=== PATIENT | female | born 1970 | race American Indian/Alaskan Native ===

== ENCOUNTER 2016-09-02 10:20 | Outpatient (CLI) | payer MEDICAID ==
[2016-09-02 10:45] LABS: Hemoglobin 11.6 gm/dl (10.1-14.3); Mean Corpuscular HGB Conc 31 % (30-34); Mean Corpuscular Hemoglobin 26 pg (28-32); Mean Corpuscular Volume 83 fl (79-97); Platelet Count 272 K/mm3 (140-440); Red Blood Count 4.46 M/mm3 (3.65-5.03); Red Cell Distribution Width 15.8 % (13.2-15.2); White Blood Count 11.9 K/mm3 (4.5-11.0)
[2016-09-02 11:08] LABS: Alanine Aminotransferase 29 units/L (7-56); Alkaline Phosphatase 90 units/L (35-129); Anion Gap 18 mmol/L; BUN/Creatinine Ratio 11.42; Bilirubin,Total 0.4 mg/dL (0.1-1.2); Blood Urea Nitrogen 8 mg/dL (7-17); Calcium 9.3 mg/dL (8.4-10.2); Carbon Dioxide 25 mmol/L (22-30); Chloride 93.2 mmol/L (98-107); Cholesterol 115 mg/dL (50-199); Glucose 272 mg/dL (65-100); HDL Cholesterol 50 mg/dL (40-59); LDL Cholesterol,Direct 49 mg/dL (50-130); Potassium 4.2 mmol/L (3.6-5.0); Sodium 132 mmol/L (137-145); Total Protein 8.2 g/dL (6.3-8.2); Triglycerides 84 mg/dL (2-149)
[2016-09-06 17:31] LABS: Vitamin D, 25-OH, Total 33 ng/mL (30-100)
== END 2016-09-02 10:21 | disposition home or self-care (01) ==
LOC: LAB 10:20
PROVIDERS: ATTEND Specialist
DX: E11.65 Type 2 diabetes mellitus with hyperglycemia (principal)
CPT/HCPCS: 36415; 80053; 80061; 82043; 82306; 83036; 85027

== ENCOUNTER 2017-09-26 11:39 | Emergency (ER) | payer MEDICAID ==
[2017-09-26 19:51] VITALS: BP 159/92
[2017-09-26] MEDS ORDERED: MOTRIN PO ONE (20:38)
[2017-09-26] MEDS ORDERED: BENADRYL PO ONE (20:38)
--- NOTE | 2017-09-26 20:43 | Emergency Department Report ---
ED Rash HPI - HPI Chief Complaint: Skin Rash Stated Complaint: INSECT BITE Time Seen by Provider: 09/26/17 20:37 Duration: 1 Day Location: Head (forehead), Upper Extremities (right) Suspected Cause: Insect Rash Symptoms: Yes Itching, Yes Blistering, No Facial Swelling, No Tongue/Oral Swelling, No Breathing Difficulties, No Choking Sensation, No Wheezing/Dyspnea, No Peeling, No Fever, No Lightheaded, No Malaise, No Myalgias Severity: severe Other History: 47-year-old -[place] female with a past medical history of diabetes hypertension hypercholesterolemia comes in for possible insect bite to the forehead yesterday. Patient reports that since this rash noted on her forehead that is very pruritic raised as well as on her right upper arm. Patient did not take any medication prior to arrival. Patient denies any fever or chills or nausea no vomiting. Patient reports that she is takes clonidine 0.3 mg daily metformin 1000 mg twice a day tizandine 4 mg, Lipitor 20 mg, metoprolol 50 mg daily, D3 5000 units daily B1 250 mg daily pro-air aspirin 81 mg and digitalis exam 120 mg daily. She also reports that she takes insulin on a 500 units sliding scale. ED Review of Systems ROS: Stated complaint: INSECT BITE Other details as noted in HPI Constitutional: denies: chills, fever Eyes: denies: eye pain, eye discharge, vision change ENT: denies: ear pain, throat pain Respiratory: denies: cough, shortness of breath, wheezing Cardiovascular: denies: chest pain, palpitations Endocrine: no symptoms reported Gastrointestinal: denies: abdominal pain, nausea, diarrhea Genitourinary: denies: urgency, dysuria, discharge Musculoskeletal: denies: back pain, joint swelling, arthralgia Skin: lesions, pruritus Neurological: headache Psychiatric: denies: anxiety, depression Hematological/Lymphatic: denies: easy bleeding, easy bruising ED Past Medical Hx - Past Medical History Previous Medical History?: Yes Hx Hypertension: Yes Hx Diabetes: Yes Hx Asthma: Yes - Surgical History Past Surgical History?: Yes Additional Surgical History: - Social History Smoking Status: Never Smoker Substance Use Type: Alcohol, Prescribed - Medications Home Medications: Home Medications Medication Instructions Recorded Confirmed Last Taken Type Cyclobenzaprine [Flexeril 10 MG 10 mg PO TID PRN #30 tablet 04/04/15 Unknown Rx TAB] Ibuprofen [Motrin] 800 mg PO Q8HR #30 tablet 04/04/15 Unknown Rx traMADol [Ultram 50 MG tab] 50 mg PO Q6HR PRN #20 tablet 04/04/15 Unknown Rx Rash Exam - Exam General: Vital signs noted. No distress. Alert and acting appropriately. HEENT: No Periorbital Edema, No Conjuctival Injection, No Chemosis, No Perioral Edema, No Tongue Edema, No Uvular Edema, No Compromised Airway, No Drooling Lungs: Yes Good Air Exchange, No Wheezes, No Ronchi, No Stridor, No Cough, No Labored Respirations, No Retractions, No Use of Accessory Muscles, No Other Abnormal Lung Sounds Heart: Yes Regular, No Murmur Skin: Yes Erythema (raised lesion that has small fluid like blisters.) Other: Positive: Abdomen Normal, Neurologic Normal, Musculoskeletal Normal ED Course Vital Signs 09/26/17 09/26/17 09/26/17 11:45 17:47 19:50 Temperature 98.8 F 98.4 F 98.7 F Pulse Rate 81 77 75 Respiratory 20 18 17 Rate Blood Pressure 167/113 154/82 Blood Pressure 159/92 [Right] O2 Sat by Pulse 100 99 100 Oximetry ED Medical Decision Making - Medical Decision Making Patient has been evaluated by this provider fast track. I discussed the patient we'll give her Benadryl 50 mg and ibuprofen for pain. I discussed the patient that she should continue with Benadryl 25 mg every 4-6 hours for itching she can take [id number] Claritin 10 mg and use the Benadryl in between as needed. Discussed the patient she can also get qjio-[id number] anti -itch cream or hydrocortisone to apply 4-5 times a day. Discussed patient if rash gets worse or does not improve she needs to follow up with her primary care provider. Patient verbalized understanding. Critical care attestation.: If time is entered above; I have spent that time in minutes in the direct care of this critically ill patient, excluding procedure time. ED Disposition Clinical Impression: Rash and nonspecific skin eruption Disposition: DC- TO HOME OR SELFCARE Is pt being admited?: No Does the pt Need Aspirin: No Condition: Stable Instructions: Acute Rash (ED), Insect Bite or Sting (ED) Additional Instructions: You should continue with Benadryl 25 mg every 4-6 hours for itching she can take [id number] Claritin 10 mg and use the Benadryl in between as needed. You can also get cpkt-wqi-[id number] anti-itch cream or hydrocortisone to apply 4 -5 times a day. If rash gets worse or does not improve you needs to follow up with her primary care provider. Referrals: LEONELA RODRIGES MD [Primary Care Provider] - 3-5 Days Forms: Accompanied Note, Work/School Release Form(ED)
== END 2017-09-26 21:05 | disposition home or self-care (01) ==
LOC: ED 11:39
DX: R21 Rash and other nonspecific skin eruption (principal); I10 Essential (primary) hypertension; E11.9 Type 2 diabetes mellitus without complications; J45.909 Unspecified asthma, uncomplicated; Z88.8 Allergy status to other drugs, medicaments and biological substances
CPT/HCPCS: 99282

== ENCOUNTER 2017-11-28 17:16 | Emergency (ER) | payer MEDICAID ==
[2017-11-28] MEDS ORDERED: NACL 0.9% 1000 ML 2,000 ML IV ONE (19:31)
[2017-11-28 20:03] LABS: HCG Qualitative,Urine Negative (Negative)
[2017-11-28 20:09] LABS: Bilirubin,Urine NEG (Negative); Blood,Urine LG (Negative); Color,Urine Yellow (Yellow); Mucus,Urine 2+ /HPF; Protein,Urine <15 mg/dL mg/dL (Negative)
[2017-11-28 20:14] LABS: Basophils # (Auto) 0.1 K/mm3 (0.0-0.1); Eosinophils # (Auto) 0.2 K/mm3 (0.0-0.4); Eosinophils % (Auto) 1.8 % (0.0-4.3); Hematocrit 37.7 % (30.3-42.9); Lymphocytes # (Auto) 3.5 K/mm3 (1.2-5.4); Lymphocytes % (Auto) 29.3 % (13.4-35.0); Mean Corpuscular HGB Conc 32 % (30-34); Mean Corpuscular Hemoglobin 26 pg (28-32); Mean Corpuscular Volume 82 fl (79-97); Monocytes # (Auto) 0.6 K/mm3 (0.0-0.8); Monocytes % (Auto) 4.9 % (0.0-7.3); Platelet Count 321 K/mm3 (140-440); Red Blood Count 4.62 M/mm3 (3.65-5.03); Red Cell Distribution Width 15.1 % (13.2-15.2)
[2017-11-28 20:31] LABS: Alanine Aminotransferase 23 units/L (7-56); Albumin 4.1 g/dL (3.9-5); BUN/Creatinine Ratio 13; Blood Urea Nitrogen 9 mg/dL (7-17); Calcium 9.1 mg/dL (8.4-10.2); Hemolysis Index 5; Lipase 33 units/L (13-60)
[2017-11-28] MEDS ORDERED: TORADOL IV ONE (20:37)
--- NOTE | 2017-11-28 22:03 | Emergency Department Report ---
HPI - General Chief Complaint: Abdominal Pain Time Seen by Provider: 11/28/17 19:33 - HPI HPI: The patient is a 47-year-old female with a history of chronic back pain, and diabetes, and whom presents for evaluation of back pain and abdominal pain. The patient reports right lower back pain for the past week, achy in quality, moderate to severe, exacerbated with movement of the lower back. She has secondary complaint of upper left abdominal pain, mild in severity, crampy in quality. The patient denies blunt trauma to the back or abdomen, fall, fever, chills, night sweats, chest pain, dyspnea, vomiting, hematemesis, dysuria, hematuria, diarrhea, blood in the stool, saddle anesthesia, paresthesias, numbness or tingling in the legs, leg weakness, urine or bowel incontinence or retention, difficulty ambulating, or other focal neurological deficits. ED Past Medical Hx - Past Medical History Hx Hypertension: Yes Hx Diabetes: Yes Hx Asthma: Yes - Surgical History Additional Surgical History: - Social History Smoking Status: Never Smoker Substance Use Type: None - Medications Home Medications: Home Medications Medication Instructions Recorded Confirmed Last Taken Type Cyclobenzaprine [Flexeril 10 MG 10 mg PO TID PRN #30 tablet 04/04/15 Unknown Rx TAB] Ibuprofen [Motrin] 800 mg PO Q8HR #30 tablet 04/04/15 Unknown Rx traMADol [Ultram 50 MG tab] 50 mg PO Q6HR PRN #20 tablet 04/04/15 Unknown Rx HYDROcodone/APAP 5-325 [[place] 1 each PO Q6HR PRN #10 tablet 11/28/17 Unknown Rx 5/325] Ibuprofen [Motrin] 800 mg PO Q8HR PRN #10 tablet 11/28/17 Unknown Rx ED Review of Systems ROS: Stated complaint: BACK/ABDOMINAL PAIN Other details as noted in HPI Constitutional: denies: fever ENT: denies: throat or neck pain Respiratory: denies: cough, shortness of breath Cardiovascular: denies: chest pain Endocrine: denies unexplained weight loss or gain Gastrointestinal: reports: abdominal pain, nausea Genitourinary: denies: dysuria Musculoskeletal: reports back pain Skin: denies: rash Neurological: denies: headache Hematological/Lymphatic: denies: easy bleeding or easy bruising Psych: denies sadness or hopelessness Physical Exam - Physical Exam Vital Signs: Vital Signs 11/28/17 11/28/17 17:22 19:40 Temperature 99.0 F Pulse Rate 109 H 94 H Respiratory 18 17 Rate Blood Pressure 144/87 Blood Pressure 167/89 [Right] O2 Sat by Pulse 97 99 Oximetry Physical Exam: \ General: well-nourished, well-developed, no acute distress Head: Normocephalic, atraumatic Eyes: normal sclera ENT: Mucous membranes are pale and dry Neck: No neck stiffness, no cervical adenopathy Respiratory: Breath sounds equal bilaterally, no wheezing, rales, or rhonchi Cardio: S1 and S2 present, no murmurs, rubs, gallops, capillary refill is delayed Abdomen: Normoactive bowel sounds, soft abdomen, LUQ tenderness to palpation present, no rigidity, no guarding or rebound tenderness Chest WALL/Back: No tenderness to palpation of the chest wall, no CVA tenderness with percussion Musc:Tenderness to palpation present to right lower thoracic paraspinal musculature, pain is elicited with bending at the hip to the right, normal active range of motion at the hip intact, no spinous step-off or obvious deformity, ipsi-lateral and contralateral straight leg raise tests are negative. On extremity testing, compartments are soft and pliable, no obvious gross motor strength deficit, 5+ motor strength, including extension of the great toe bilaterally, no muscular atrophy, spasticity, fasciculations, or clonus, no obvious gross sensation deficit including web space between 1st and 2nd toes, reflexes 2+ & symmetric on DTR testing at the knee and ankle joints, distal pulses intact. Skin: No rash Neuro: no facial drooping, normal speech Psych: Normal affect ED Course Vital Signs 11/28/17 11/28/17 17:22 19:40 Temperature 99.0 F Pulse Rate 109 H 94 H Respiratory 18 17 Rate Blood Pressure 144/87 Blood Pressure 167/89 [Right] O2 Sat by Pulse 97 99 Oximetry ED Medical Decision Making - Lab Data Result diagrams: 11/28/17 20:06 11/28/17 20:06 - Medical Decision Making The patient was seen and examined by myself. The patient is placed on a alarm security or surveillance monitor and continuous pulse ox. On initial evaluation, the patient was found to be in no distress. No findings on exam concerning for cauda equina syndrome, spinal stenosis, or epidural abscess. As the patient has no midline tenderness on exam, no neuro deficits, and no findings concerning for emergent etiology of their back pain, imaging will not be obtained at this time. Point- of-care Accu-Chek revealed elevated blood sugar of 270. The patient is given pain medicine, and normal saline fluid bolus for treatment of her dehydration and hyperglycemia. Lab results are reassuring including normal venous pH level, not consistent with DKA. The patient was reevaluated and reported that their pain significantly improved. The patient is stable for discharge with outpatient follow-up. The patient is given follow-up and return instructions. The patient expressed understanding and agreed with the plan. The patient is discharged in stable condition. Critical care attestation.: If time is entered above; I have spent that time in minutes in the direct care of this critically ill patient, excluding procedure time. ED Disposition Clinical Impression: Dehydration, Acute hyperglycemia, Acute right-sided low back pain without sciatica, Acute abdominal pain in left upper quadrant Disposition: DC-01 TO HOME OR SELFCARE Is pt being admited?: No Does the pt Need Aspirin: No Condition: Stable Instructions: Abdominal Pain (ED), Chronic Back Pain (ED), Diabetic Hyperglycemia (ED) Referrals: PRIMARY CARE, [Primary Care Provider] - 3-5 Days Time of Disposition: 22:24
[2017-11-28 22:30] VITALS: BP 182/85
== END 2017-11-28 22:35 | disposition home or self-care (01) ==
LOC: ED 17:16
DX: E11.65 Type 2 diabetes mellitus with hyperglycemia (principal); E86.0 Dehydration; M54.5 Low back pain; R10.12 Left upper quadrant pain; I10 Essential (primary) hypertension; J45.909 Unspecified asthma, uncomplicated
CPT/HCPCS: 36415; 80053; 81001; 81025; 82805; 82962; 83690; 84703; 85025; 96361; 96374; 99284; J1885; J7030

== ENCOUNTER 2020-07-30 12:46 | Outpatient (CLI) | payer MEDICAID ==
--- NOTE | 2020-07-30 13:57 | XRay Report ---
CHEST 2 VIEWS INDICATION: CHEST PAIN. COMPARISON: None FINDINGS: Support devices: None. Heart: Within normal limits. Lungs/pleura: No acute air space or interstitial disease. No pneumothorax. Additional findings: None. IMPRESSION: No acute findings. Signer Name: Keith Pereira Jr, MD Signed: 07/30/2020 1:52 PM Workstation Name: [id number]
== END 2020-07-30 12:47 | disposition home or self-care (01) ==
LOC: XRAY 12:46
PROVIDERS: ATTEND Pain Medicine Interventional Pain Medicine
DX: R05 Cough (principal)
CPT/HCPCS: 71046

== ENCOUNTER 2021-09-21 14:52 | Emergency (ER) | payer MEDICARE ==
[2021-09-21 17:23] LABS: Bilirubin,Urine NEG (Negative); Blood,Urine LG (Negative); Color,Urine Red (Yellow); Urobilinogen,Urine < 2.0 mg/dL (<2.0)
[2021-09-21 17:24] LABS: RBC,Urine > 182.0 /HPF (0.0-6.0)
--- NOTE | 2021-09-21 17:44 | Emergency Department Report ---
ED Female HPI - General Chief complaint: Vaginal Bleeding Stated complaint: BLEEDING Source: patient Mode of arrival: Ambulatory Limitations: No Limitations - History of Present Illness Initial comments: 51-year-old female presents to the ED complaining heavy menstrual bleeding. Patient states that is current on her menstrual cycle and having abdominal cramping. States using 1 pad every 3-4 hour. She has an OB appointment next week. Patient state he came to the ED to make sure that she was not losing too much blood. Patient is alert and oriented x3. Talking on cell phone during examination. States that she is not sexually active. Denies any vaginal discharge or any other complaints. Patient states that she cycle has been normal up until this July. No acute distress noted. No ill appearance noted. She states she has a history of hypertension. States she did not take her hypertension medication prior to coming to the ED. Associated Symptoms: denies other symptoms - Related Data Sexually active: No Home Medications Medication Instructions Recorded Confirmed Last Taken AtorvaSTATin [Lipitor] 20 mg PO QHS 09/21/21 09/21/21 Unknown Clonidine HCl [Kapvay] 0.1 mg PO 09/21/21 Unknown Duloxetine HCl 60 mg PO 09/21/21 Unknown Ergocalciferol [Vitamin D2] 1 cap PO QWEEK 09/21/21 09/21/21 Unknown Ferrous Sulfate [Iron 325 MG] 325 mg PO 09/21/21 Unknown Metoprolol Xl [Metoprolol 75 mg PO QDAY 09/21/21 09/21/21 Unknown SUCCINATE ER TAB] Previous Rx's Medication Instructions Recorded Last Taken Type traMADoL [Ultram] 50 mg PO Q6HR PRN 15 Days #30 09/21/21 Unknown Rx tablet Allergies Allergy/AdvReac Type Severity Reaction Status Date / Time lisinopril Allergy Angioedema Verified 09/21/21 14:58 ED Review of Systems ROS: Stated complaint: BLEEDING Other details as noted in HPI Constitutional: denies: chills, fever Eyes: denies: eye pain, eye discharge, vision change ENT: denies: ear pain, throat pain Respiratory: denies: cough, shortness of breath, wheezing Cardiovascular: denies: chest pain, palpitations Endocrine: no symptoms reported Gastrointestinal: denies: abdominal pain, nausea, diarrhea Genitourinary: abnormal menses. denies: urgency, dysuria, discharge Musculoskeletal: denies: back pain, joint swelling, arthralgia Skin: denies: rash, lesions Neurological: denies: headache, weakness, paresthesias Psychiatric: denies: anxiety, depression Hematological/Lymphatic: denies: easy bleeding, easy bruising ED Past Medical Hx - Past Medical History Hx Hypertension: Yes Hx Diabetes: Yes Hx Asthma: Yes - Surgical History Additional Surgical History: - Social History Smoking Status: Never Smoker Substance Use Type: None - Medications Home Medications: Home Medications Medication Instructions Recorded Confirmed Last Taken Type AtorvaSTATin [Lipitor] 20 mg PO QHS 09/21/21 09/21/21 Unknown History Clonidine HCl [Kapvay] 0.1 mg PO 09/21/21 Unknown History Duloxetine HCl 60 mg PO 09/21/21 Unknown History Ergocalciferol [Vitamin D2] 1 cap PO QWEEK 09/21/21 09/21/21 Unknown History Ferrous Sulfate [Iron 325 MG] 325 mg PO 09/21/21 Unknown History Metoprolol Xl [Metoprolol 75 mg PO QDAY 09/21/21 09/21/21 Unknown History SUCCINATE ER TAB] traMADoL [Ultram] 50 mg PO Q6HR PRN 15 Days #30 09/21/21 Unknown Rx tablet ED Physical Exam - General Limitations: No Limitations General appearance: alert, in no apparent distress - Head Head exam: Present: atraumatic, normocephalic - Eye Eye exam: Present: normal appearance - ENT ENT exam: Present: mucous membranes moist - Neck Neck exam: Present: normal inspection - Respiratory Respiratory exam: Present: normal lung sounds bilaterally. Absent: respiratory distress - Cardiovascular Cardiovascular Exam: Present: regular rate, normal rhythm. Absent: systolic murmur, diastolic murmur, rubs, gallop - GI/Abdominal GI/Abdominal exam: Present: soft, normal bowel sounds - Speculum exam: Present: vaginal bleeding - Extremities Exam Extremities exam: Present: normal inspection - Back Exam Back exam: Present: normal inspection - Neurological Exam Neurological exam: Present: alert, oriented X3 - Psychiatric Psychiatric exam: Present: normal affect, normal mood - Skin Skin exam: Present: warm, dry, intact, normal color. Absent: rash ED Course Vital Signs 09/21/21 09/21/21 15:01 18:35 Temperature 98.1 F Pulse Rate 91 H 90 Respiratory 16 16 Rate Blood Pressure 172/75 Blood Pressure 151/89 [Right] O2 Sat by Pulse 100 100 Oximetry ED Medical Decision Making - Lab Data Result diagrams: 09/21/21 17:25 - Medical Decision Making 51-year-old female presents to the ED complaining heavy menstrual bleeding. Patient states that is current on her menstrual cycle and having abdominal cramping. States using 1 pad every 3-4 hour. She has an OB appointment next week. Patient state he came to the ED to make sure that she was not losing too much blood. Patient is alert and oriented x3. Talking on cell phone during examination. States that she is not sexually active. Denies any vaginal discharge or any other complaints. Patient states that she cycle has been norm al up until this July. No acute distress noted. No ill appearance noted. She states she has a history of hypertension. States she did not take her hypertension medication prior to coming to the ED. physical examination unremarkable. Patient is to keep appointment with [facility] on Wednesday. Hem oglobin hematocrit within normal limit. Urinalysis do show large blood. Rechecked the patient is resting quietly quietly and comfortable and feeling better. I discussed the results of diagnostic study, my clinical impression and the plan for further treatment with the patient. Patient agrees with plan and discharge at this present time. All question addressed. I have given the patient instruction regarding a diagnosis ,expectation ,follow- up and return precaution. I explained to the patient that emergent condition may arise and to return to the ED for new worsen and any new persisting condition. I have explained the importance of following up with the primary care physician or referral physician listed below has instructed. The patient verbalized understanding of discharge instruction. Critical care attestation.: If time is entered above; I have spent that time in minutes in the direct care of this critically ill patient, excluding procedure time. ED Disposition Clinical Impression: Menorrhagia Qualifiers: Menorrhagia type: with regular cycle Qualified Code(s): N92.0 - Excessive and frequent menstruation with regular cycle Disposition: 01 HOME / SELF CARE / HOMELESS Is pt being admited?: No Does the pt Need Aspirin: No Condition: Stable Instructions: Metrorrhagia, [id number] Additional Instructions: Keep Appointment with [facility] on Wednesday Take hypertension and other medication that are prescribed by your primary care doctor Return to the ED for any worsening symptom Prescriptions: traMADoL [Ultram] 50 mg PO Q6HR PRN 15 Days #30 tablet PRN Reason: Pain Referrals: [facility] [Provider Group] - 3-5 Days Forms: Work/School Release Form(ED)
[2021-09-21 17:47] LABS: Basophils % (Auto) 0.4 % (0.0-1.8); Eosinophils # (Auto) 0.2 K/mm3 (0.0-0.4); Eosinophils % (Auto) 2.4 % (0.0-4.3); Hematocrit 35.1 % (30.3-42.9); Lymphocytes % (Auto) 22.5 % (13.4-35.0); Mean Corpuscular HGB Conc 31 % (30-34); Mean Corpuscular Volume 84 fl (79-97); Monocytes # (Auto) 0.4 K/mm3 (0.0-0.8); Monocytes % (Auto) 4.9 % (0.0-7.3); Platelet Count 321 K/mm3 (140-440); Red Blood Count 4.19 M/mm3 (3.65-5.03); Red Cell Distribution Width 15.6 % (13.2-15.2)
[2021-09-21 18:37] VITALS: BP 151/89
== END 2021-09-22 16:13 | disposition home or self-care (01) ==
LOC: ED 14:52
DX: N92.0 Excessive and frequent menstruation with regular cycle (principal); Z88.8 Allergy status to other drugs, medicaments and biological substances; I10 Essential (primary) hypertension; E11.8 Type 2 diabetes mellitus with unspecified complications; J45.909 Unspecified asthma, uncomplicated
CPT/HCPCS: 36415; 81001; 85025; 99283